=== PATIENT | female | born 1940 | race Caucasian/White ===

== ENCOUNTER 2017-03-10 20:47 | Emergency (ER) | payer OTHER ==
[~2017-03-10] VITALS: Ht 160 cm; Wt 64.0 kg
[~2017-03-10 20:47] MED LIST: AMLO-147 PO
[2017-03-10 20:54] VITALS: Ht 160 cm; Wt 64.0 kg
[2017-03-10] MEDS ORDERED: CEPH-443 PO (21:57)
[2017-03-10 22:04] VITALS: BP 147/77; PULSE 74; RESP 18; TEMP 98.2
--- NOTE | 2017-03-10 22:12 | ERD ---
ER Documentation Chief Complaint Date/Time DATE: 03/10/17 TIME: 21:59 Chief Complaint R ankle cellulitus pt has not started abx treatment HPI Patient is a 76 [id number] female with a past medical history of hypertension, cerebral aneurysm who presents to the emergency department for concerns of right ankle wound.Patient is brought in by her daughter. Daughter states that she noticed the wound approximately 4 days ago. Patient states that the affected area is tender to touch. Patient denies any falls or trauma. Patient did recently go to urgent care and was prescribed Bactrim. Patient denies starting this medication yet. Patient denies any fevers, chills, nausea , vomiting, chest pain, shortness of breath, headache, blurry vision or LOC.Patient is able to ambulate however she reports it being painful.Patient denies history of diabetes. ROS All systems reviewed and are negative except as per history of present illness. Medications Home Meds Active Scripts Cephalexin* (Keflex*) 500 Mg Capsule, 500 MG PO QID for 10 Days, CAP Prov:MILAGROS FROST PA-C 03/10/17 Reported Medications Amlodipine Besylate* (Amlodipine Besylate*) 10 Mg Tablet, 10 MG PO DAILY, TAB 12/20/13 Allergies Allergies: Coded Allergies: No Known Allergy (Unverified , 12/20/13) PMhx/Soc History of Surgery: Yes (CRANIAL SURGERY R/T ANEURYSM 2013, COLONECTOMY) Anesthesia Reaction: No Hx Neurological Disorder: No Hx Respiratory Disorders: No Hx Cardiac Disorders: Yes (HTN) Hx Psychiatric Problems: No Hx Miscellaneous Medical Probl: No Hx Alcohol Use: No Hx Substance Use: No Hx Tobacco Use: No Smoking Status: Never smoker Physical Exam Vitals Vital Signs Date Time Temp Pulse Resp B/P Pulse Ox O2 Delivery O2 Flow Rate FiO2 03/10/17 20:54 99.2 76 18 184/86 99 Physical Exam GENERAL: Well-developed, well-nourished female. Appears in no acute distress. HEAD: Normocephalic, atraumatic. EYES: Pupils are equally reactive bilaterally. EOMs grossly intact. No conjunctival erythema. ENT: Moist mucous membranes. No uvula deviation. No kissing tonsils. NECK: Supple. No meningismus. Normal range of motion of the neck. LUNG: Clear to auscultation bilaterally. No rhonchi, wheezing, rales or coarse breath sounds. HEART: Regular rate and rhythm. No murmurs, rubs or gallops. BACK: No midline tenderness. EXTREMITIES: Equal pulses bilaterally. No peripheral clubbing, cyanosis or edema. No unilateral leg swelling. NEUROLOGIC: Alert and oriented. Moving all four extremities without any difficulty. Normal speech. Steady gait. SKIN: 2 cm superficial ulcer noted on the medial aspect of the patient's right ankle with surrounding erythema and venous stasis. No active bleeding. 2+ DP palpated. Procedures/MDM MEDICAL DECISION MAKING: This is a 76-year-old female presents to the ED with concerns of a wound to her right ankle. Vital signs were reviewed. Patient was afebrile. Patient is not diabetic. Dr. Hogue my supervising physician examined the patient and agreed that skin exam findings were consistent with venous ulcer. Patient was be given prescription for Keflex. Patient was advised to fill prescription for Bactrim today when obtaining Keflex. Low suspicion for deep space infection, abscess, necrotizing fasciitis, sepsis, gangrene, insect bite. Low suspicion for patient requiring IV antibiotics at this time given that she has not tried p.o. antibiotics. Patient was advised to return to the emergency department in 2 days for wound recheck after completing at least 48 hours of p.o. antibiotics. PRESCRIPTIONS: Keflex DISCHARGE: At this time, patient is stable for discharge and outpatient management. I have instructed the patient to follow-up with his/her primary care physician in 1-2 days. Vascular surgery referral information provided. I have instructed the patient to promptly return to the ER at any time for any new or worsening symptoms including increased pain, fever, redness, swelling, warmth, difficulty breathing or vomiting. The patient and/or family expressed understanding of and agreement with this plan. All questions were answered. Home care instructions were provided. Disclaimer: Inadvertent spelling and grammatical errors are likely due to EHR/ dictation software use and do not reflect on the overall quality of patient care. Also, please note that the electronic time recorded on this note does not necessarily reflect the actual time of the patient encounter. Patient's blood pressure was elevated (>120/80) but appears stable without evidence of hypertensive emergency, hypertensive urgency or end-organ failure. I had discussion with the patient about the risks of hypertension. I have advised the patient to follow up with his/her primary care physician for outpatient monitoring and treatment for hypertension in 2-3 days. I have instructed the patient to return to the ER for any new or worsening symptoms including chest pain, shortness of breath, headache, blurred vision, confusion, nausea, vomiting or LOC. Departure Diagnosis: Primary Impression: Venous ulcer of ankle Varicose vein presence: unspecified whether present Laterality: right Non- pressure ulcer stage: unspecified non-pressure ulcer stage Qualified Code: I83.013 - Venous stasis ulcer of right ankle, unspecified ulcer stage, unspecified whether varicose veins present Condition: Stable Patient Instructions: Venous Leg Ulcer Referrals: CASA BUCIO MD,DAVID LONGO MD, MD,UYEN JIMENEZ,CONCEPCIÓN SMITH,GARCÍA WEINBERG,JANETH Bautista MD Additional Instructions: Start PO antibiotics-BOTH KEFLEX AND BACTRIM. Return in 2-3 days for wound recheck. Call your primary care doctor TOMORROW for an appointment during the next 1-2 days.See the doctor sooner or return here if your condition worsens before your appointment time. MILAGROS FROST PA-C Mar 10, 2017 22:11
== END 2017-03-10 22:05 | disposition home or self-care (01) ==
LOC: FTE 20:47
DX: I83.013 Varicose veins of right lower extremity with ulcer of ankle (principal); L97.319 Non-pressure chronic ulcer of right ankle with unspecified severity; I10 Essential (primary) hypertension
CPT/HCPCS: 99283

== ENCOUNTER 2017-03-12 17:05 | Emergency (ER) | payer OTHER ==
[~2017-03-12] VITALS: Ht 162.6 cm; Wt 61.0 kg
[~2017-03-12 17:05] MED LIST changes: +CEPH-443 PO
[2017-03-12 17:10] VITALS: Ht 162.6 cm; Wt 61.0 kg
[2017-03-12] MEDS ORDERED: HYDROCODONE/APAP (5/325) TAB PO ONE (18:00)
--- NOTE | 2017-03-12 18:38 | RADRPT ---
PROCEDURE: XR Tibia and Fibula. CLINICAL INDICATION: Trauma to the mid right leg. Reference marker directed towards the anterior me dial aspects of the mid right leg. TECHNIQUE: AP, lateral and oblique views of the right tibia and fibula were obtained. COMPARISON: No prior studies are available for comparison. FINDINGS: There is normal mineralization and alignment. No fracture or osseous lesion is identified. The joint s are unremarkable. There are normal soft tissues without evidence of soft tissue swelling. Likely s cattered soft tissue calcifications. IMPRESSION: Normal right tibia and fibula. RPTAT: [facility] Physician Samantha Date Time Electronically viewed and signed by Physician Samantha on 03/12/2017 18:37 RS/
[2017-03-12] MEDS ORDERED: HYDR-902 PO (18:50)
--- NOTE | 2017-03-12 18:58 | ERD ---
ER Documentation Chief Complaint Date/Time DATE: 03/12/17 TIME: 18:55 Chief Complaint right leg pain dx:venous ulcer on abx, unable to walk HPI This is a 76-year-old female who was seen here 2 days ago. Patient was diagnosed with an infected right medial malleolus venous stasis ulcer. She is given Keflex and Bactrim. She says she is doing much better her swelling is nearly resolved has completely resolved and her erythema is markedly improved. She states she still has some pain in the area just above the ulcer there is no calf swelling or shortness of breath chest pain. Pain is a dull pain that is nonradiating and worse when ambulating better with rest ROS All systems reviewed and are negative except as per history of present illness. Medications Home Meds Active Scripts Hydrocodone/Acetaminophen (Platina 10-325 Tablet) 1 Each Tablet, 1 TAB PO Q6H Y for PAIN, #20 TAB Prov:TIAGO ORNELAS DO 03/12/17 Cephalexin* (Keflex*) 500 Mg Capsule, 500 MG PO QID for 10 Days, CAP Prov:MILAGROS FROST PA-C 03/10/17 Reported Medications Amlodipine Besylate* (Amlodipine Besylate*) 10 Mg Tablet, 10 MG PO DAILY, TAB 12/20/13 Allergies Allergies: Coded Allergies: No Known Allergy (Unverified , 12/20/13) PMhx/Soc History of Surgery: Yes (CRANIAL SURGERY R/T ANEURYSM 2013, COLONECTOMY) Anesthesia Reaction: No Hx Neurological Disorder: No Hx Respiratory Disorders: No Hx Cardiac Disorders: Yes (HTN) Hx Psychiatric Problems: No Hx Miscellaneous Medical Probl: Yes (venous stasis ulcer) Hx Alcohol Use: No Hx Substance Use: No Hx Tobacco Use: No Smoking Status: Never smoker FmHx Family History: No coronary disease Physical Exam Vitals Vital Signs Date Time Temp Pulse Resp B/P Pulse Ox O2 Delivery O2 Flow Rate FiO2 03/12/17 17:10 99.5 88 18 147/78 96 Physical Exam Const: Well-developed, well-nourished Head: Atraumatic, normocephalic Eyes: Normal Conjunctiva, PERRLA, EOMI, normal sclera, no nystagmus ENT: Normal External Ears, Nose and Mouth, moist mucus membranes. Neck: Full range of motion. No meningismus, no lymphadenopathy. Resp: Clear to auscultation bilaterally, no wheezing, rhonchi, rales Cardio: Regular rate and rhythm, no murmurs, S1 S2 present Abd: Soft, non tender x 4, non distended. Normal bowel sounds, no guarding or rebound, no pulsitile abdominal masses or bruits Skin: No petechiae or rashes, no ecchymosis , no maculopapular rash Back: No midline or flank tenderness Ext: The right leg at the aspect of the medial malleolus has a healing venous stasis ulcer with cellulitis is very minimal her some tenderness just above this area on the tibia. There is no ecchymosis swelling Neur: Awake and alert, STR 5/5 x 4, sensation intact x 4, no focal findings, cerebellum intact Psych: Normal Mood and Affect Results 24 hrs Current Medications Medications (Trade) Dose Ordered Sig/Lily Route PRN Reason Start Time Stop Time Status Last Admin Dose Admin Acetaminophen/ Hydrocodone Bitart (Platina (5/325)) 1 tab ONCE ONCE PO 03/12/17 18:00 03/12/17 18:01 DC 03/12/17 17:57 Procedures/MDM PROCEDURE: XR Tibia and Fibula. CLINICAL INDICATION: Trauma to the mid right leg. Reference marker directed towards the anterior medial aspects of the mid right leg. TECHNIQUE: AP, lateral and oblique views of the right tibia and fibula were obtained. COMPARISON: No prior studies are available for comparison. FINDINGS: There is normal mineralization and alignment. No fracture or osseous lesion is identified. The joints are unremarkable. There are normal soft tissues without evidence of soft tissue swelling. Likely scattered soft tissue calcifications. IMPRESSION: Normal right tibia and fibula. RPTAT: [facility] Physician Samantha Date Time Electronically viewed and signed by Physician Samantha on 03/12/2017 18:37 RS/ CC: TIAGO ORNELAS DO No evidence of fracture or tumor in the bone. We will discharge her Platina Departure Diagnosis: Primary Impression: Cellulitis Site of cellulitis: extremity Site of cellulitis of extremity: lower extremity Laterality: right Qualified Code: L03.115 - Cellulitis of right lower extremity Additional Impression: Lower extremity pain Laterality: right Qualified Code: M79.604 - Pain of right lower extremity Condition: Stable Patient Instructions: Cellulitis TIAGO ORNELAS DO Mar 12, 2017 18:58
[2017-03-12 19:28] VITALS: BP 143/68; PULSE 74; RESP 17; TEMP 99
== END 2017-03-12 19:31 | disposition home or self-care (01) ==
LOC: E/R 17:05
DX: L03.115 Cellulitis of right lower limb (principal); I10 Essential (primary) hypertension
CPT/HCPCS: 73590

== ENCOUNTER 2017-03-16 18:37 | Emergency (ER) | payer OTHER ==
[~2017-03-16] VITALS: Ht 165.1 cm; Wt 72.0 kg
[~2017-03-16 18:37] MED LIST changes: +HYDR-902 PO
[2017-03-16 18:40] VITALS: Ht 165.1 cm; Wt 72.0 kg
--- NOTE | 2017-03-16 23:18 | RADRPT ---
PROCEDURE: US Lower extremity Venous. CLINICAL INDICATION: Right lower extremity edema TECHNIQUE: Multiple sonographic images of the right lower extremity deep venous system was obtaine d utilizing grayscale, color-flow, compressive sonography and doppler imaging with augmentation. COMPARISON: None. FINDINGS: There is normal compressibility / flow within the right common femoral, femoral and popliteal veins. The visualized deep veins of the calf are unremarkable. RPTAT:HJJR IMPRESSION: No sonographic evidence for deep venous thrombosis of the right lower extremity. Physician Rylie Date Time Electronically viewed and signed by Physician Rylie on 03/16/2017 23:18 /
--- NOTE | 2017-03-16 23:19 | RADRPT ---
PROCEDURE: XR right ankle. CLINICAL INDICATION: Swelling and right ankle pain TECHNIQUE: AP , oblique and lateral views of the right ankle were performed. COMPARISON: None. FINDINGS: Diffuse decreased mineralization cannot exclude osteopenia or osteoporosis. No focal demineralizatio n or periosteal reaction is demonstrated. There is a small plantar calcaneal spur. No fracture or os seous lesion is identified. The ankle mortis and talar dome are intact. Mild diffuse soft tissue swe lling is present. There is no evidence for a radiopaque foreign body. RPTAT:HJJR IMPRESSION: Mild soft tissue swelling and demineralization without acute osseous abnormality involving the righ t ankle. Physician Rylie Date Time Electronically viewed and signed by Physician Rylie on 03/16/2017 23:19 /
[2017-03-16 23:27] VITALS: TEMP 98.1
[2017-03-16] MEDS ORDERED: HYDROCODONE/APAP (5/325) TAB PO ONE (23:30)
[2017-03-17 00:05] LABS: BASOPHIL # 0.1 10^3/ul (0.0-0.1); BASOPHILS % 0.7 % (0.0-2.0); EOSINOPHILS # 0.3 10^3/ul (0.0-0.5); EOSINOPHILS % 3.1 % (0.0-7.0); HEMATOCRIT 39.5 % (37.0-47.0); HEMOGLOBIN 12.1 g/dl (12.0-16.0); LYMPHOCYTES # 2.3 10^3/ul (0.8-2.9); LYMPHOCYTES % 26.9 % (15.0-51.0); MEAN CORPUSCULAR HEMOGLOBIN 25.2 pg (29.0-33.0); MEAN CORPUSCULAR HGB CONC 30.6 g/dl (32.0-37.0); MEAN CORPUSCULAR VOLUME 82.3 fl (82.0-101.0); MONOCYTE # 0.6 10^3/ul (0.3-0.9); MONOCYTES % 7.1 % (0.0-11.0); NEUTROPHIL # 5.3 10^3/ul (1.6-7.5); PLATELET COUNT 336 10^3/UL (140-415); RED CELL DISTRIBUTION WIDTH 16.8 % (11.5-14.5); WHITE BLOOD COUNT 8.6 10^3/ul (4.8-10.8)
--- NOTE | 2017-03-17 00:09 | ERA ---
ER Documentation Chief Complaint Date/Time DATE: 03/17/17 TIME: 00:07 Chief Complaint c/o right foot non healing venous ulcer x 2 wks. Pain worse. HPI This is a 76-year-old female with a history of hypertension who is presenting with persistent pain and swelling around a right lower extremity venous stasis ulcer. This is now the third visit in approximately a week for similar symptoms. At the patient's first visit on March 10, it appears that nothing was ordered as the wounds did not look infected. She was provided a prescription for antibiotics at that time. She was instructed to follow-up with her primary care doctor or return to the emergency department for reevaluation 2 days after that visit. She did so and was reevaluated. She had an x-ray performed at that time that that did not reveal any acute traumatic injury. She is diagnosed with cellulitis at that time and told to continue her regimen of antibiotics. She returns today with persistent discomfort and swelling along the site. The family is concerned about a blood clot to the leg , though the patient does not have a history of clotting. She does have a history of lower extremity edema. She denies history of heart attack or stroke in her or her family. Patient otherwise feels well. She has not been sick recently. She has no fever or chills. She has no nausea or vomiting. She has no headache or trouble with seeing. She has no chest pain or trouble breathing. She has no abdominal pain. She has no changes to bowel movements urination. She has no focal deficits. ROS All systems reviewed and are negative except as per history of present illness. Medications Home Meds Active Scripts Hydrocodone/Acetaminophen (Omega 10-325 Tablet) 1 Each Tablet, 1 TAB PO Q6H Y for PAIN, #20 TAB Prov:TIAGO ORNELAS DO 03/12/17 Cephalexin* (Keflex*) 500 Mg Capsule, 500 MG PO QID for 10 Days, CAP Prov:MILAGROS FROST PA-C 03/10/17 Reported Medications Amlodipine Besylate* (Amlodipine Besylate*) 10 Mg Tablet, 10 MG PO DAILY, TAB 12/20/13 Allergies Allergies: Coded Allergies: No Known Allergy (Unverified , 03/16/17) PMhx/Soc History of Surgery: Yes (CRANIAL SURGERY R/T ANEURYSM 2013, COLONECTOMY) Anesthesia Reaction: No Hx Neurological Disorder: No Hx Respiratory Disorders: No Hx Cardiac Disorders: Yes (HTN) Hx Psychiatric Problems: No Hx Miscellaneous Medical Probl: Yes (venous stasis ulcer) Hx Alcohol Use: No Hx Substance Use: No Hx Tobacco Use: No Smoking Status: Never smoker FmHx Family History: No diabetes Physical Exam Vitals Vital Signs Date Time Temp Pulse Resp B/P Pulse Ox O2 Delivery O2 Flow Rate FiO2 03/16/17 23:27 98.1 79 20 178/91 Room Air 03/16/17 21:18 98.2 62 20 198/93 99 Room Air 03/16/17 18:40 98.6 61 18 136/71 99 Physical Exam Const: No apparent distress, normocephalic, atraumatic Head: Atraumatic Eyes: Normal Conjunctiva ENT: Normal External Ears, Nose and Mouth. Neck: Full range of motion..~ No meningismus. Resp: Clear to auscultation bilaterally Cardio: Regular rate and rhythm, no murmurs Abd: Soft, non tender, non distended. Normal bowel sounds Skin: No petechiae or rashes Back: No midline or flank tenderness Ext: No cyanosis, mild 1+ pitting right-sided pedal edema, minimal erythema around a stage I scabbing ulcer of the medial aspect of the distal right paula, no purulence Neur: Awake and alert, normal sensation, normal strength Psych: Normal Mood and Affect Result Diagram: 03/16/17231103/16/172311 Results 24 hrs Laboratory Tests Test 03/16/17 23:12 White Blood Count 8.610^3/ul Red Blood Count 4.8010^6/ul Hemoglobin 12.1g/dl Hematocrit 39.5% Mean Corpuscular Volume 82.3fl Mean Corpuscular Hemoglobin 25.2pg Mean Corpuscular Hemoglobin Concent 30.6g/dl Red Cell Distribution Width 16.8% Platelet Count 99524^3/UL Mean Platelet Volume 11.0fl Neutrophils % 62.0% Lymphocytes % 26.9% Monocytes % 7.1% Eosinophils % 3.1% Basophils % 0.7% Nucleated Red Blood Cells % 0.0/100WBC Neutrophils # 5.310^3/ul Lymphocytes # 2.310^3/ul Monocytes # 0.610^3/ul Eosinophils # 0.310^3/ul Basophils # 0.110^3/ul Nucleated Red Blood Cells # 0.010^3/ul Erythrocyte Sedimentation Rate 43mm/Hr Sodium Level 139mmol/L Potassium Level 4.5mmol/L Chloride Level 104mmol/L Carbon Dioxide Level 27mmol/L Anion Gap 13 Blood Urea Nitrogen 19mg/dl Creatinine 0.81mg/dl Glucose Level 104mg/dl Calcium Level 9.3mg/dl C-Reactive Protein Pending Current Medications Medications (Trade) Dose Ordered Sig/Lily Route PRN Reason Start Time Stop Time Status Last Admin Dose Admin Acetaminophen/ Hydrocodone Bitart (Omega (5/325)) 1 tab ONCE ONCE PO 03/16/17 23:30 03/16/17 23:35 DC 03/16/17 23:39 Procedures/MDM MDM Patient's presentation warrants further investigation. This is now the third emergency medicine visit this month for similar complaint. She has had previous imaging performed, but no blood work or ultrasound has been done in the past. I intend to complete blood work. We will obtained a right ankle x- ray. We also obtain a right lower extremity ultrasound to evaluate for DVT. LABS The patient's blood work was obtained and reviewed. The patient seemed shows no leukocytosis or left shift. The patient is afebrile, and I do not suspect a systemic infection. The patient is not anemic today. The patient's platelet count is unremarkable. The patient's CMP shows no signs of metabolic or electrolyte abnormality. The patient has normal renal and hepatic function testing. The patient's ESR and CRP are still pending. IMAGING LLE Doppler IMPRESSION: No sonographic evidence for deep venous thrombosis of the right lower extremity. Electronically viewed and signed by Physician Rylie on 03/16/2017 23:18 Ankle XR IMPRESSION: No sonographic evidence for deep venous thrombosis of the right lower extremity. Electronically viewed and signed by Physician Rylie on 03/16/2017 23:18 TREATMENT/DISPOSITION The patient was given oral narcotic pain medication in the emergency department as per her regimen from home. I do see evidence of very mild cellulitis, and it appears to be almost completely resolved. The patient still has the ulcer that will need to be attended to. A thin layer of bacitracin over Neosporin may be applied to the wound at home. The patient needs to complete her course of antibiotics at home. She may continue taking her pain medication as prescribed previously. She needs follow-up with her primary care physician regarding the wound. The patient does not have visual evidence of osteomyelitis. The ESR and CRP will not come back quickly. Decision making was enacted, and it was decided to have the primary care doctor follow-up with these blood tests. I felt that this was appropriate given my low suspicion for osteomyelitis at this time. I feel that the course previously decided upon during her last emergency medicine visit is appropriate. The patient is stable for discharge. She will be given precautions with which to return to the emergency department. Patient's blood pressure was elevated in the emergency department. She was instructed to follow-up with her primary care physician for reevaluation of her pressure. She does not endorse any symptoms of hypertensive urgency or emergency. Departure Diagnosis: Primary Impression: Skin ulcer Qualified Code: L98.491 - Skin ulcer, limited to breakdown of skin Additional Impressions: Venous stasis ulcer Qualified Code: I87.2 - Venous stasis ulcer of left calf limited to breakdown of skin without varicose veins Pedal edema Encounter for wound re-check Condition: CORDELL Figueroa MD Mar 17, 2017 00:09
[2017-03-17 00:35] LABS: CALCIUM 9.3 mg/dl (8.4-10.2); CREATININE 0.81 mg/dl (0.44-1.00); POTASSIUM 4.5 mmol/L (3.5-5.1)
[2017-03-17 01:40] VITALS: BP 185/80; PULSE 56; RESP 18
[2017-03-17 01:50] LABS: C-REACTIVE PROTEIN 0.8 mg/dl (0.0-0.9)
== END 2017-03-17 01:40 | disposition home or self-care (01) ==
LOC: E/R 18:37
DX: L98.491 Non-pressure chronic ulcer of skin of other sites limited to breakdown of skin (principal); I87.2 Venous insufficiency (chronic) (peripheral); I10 Essential (primary) hypertension; Z48.01 Encounter for change or removal of surgical wound dressing
CPT/HCPCS: 80048; 85025; 85651; 86140; 93971

== ENCOUNTER 2018-07-23 16:16 | Emergency (ER) | payer OTHER ==
[~2018-07-23] VITALS: Ht 167.6 cm; Wt 85.0 kg
[~2018-07-23 16:16] MED LIST changes: +HYDR-3980 PO; -HYDR-902 PO
[2018-07-23 16:20] VITALS: Ht 167.6 cm; Wt 85.0 kg
[2018-07-23] MEDS ORDERED: ACETAMINOPHEN 325 MG TAB PO ONE (18:00)
[2018-07-23] MEDS ORDERED: TRAM50TA2 PO (19:07)
[2018-07-23] MEDS ORDERED: IBUP-1561 PO (19:07)
--- NOTE | 2018-07-23 19:11 | ERD ---
ER Documentation Chief Complaint Chief Complaint Complains of arm pain afetr a slip and fall HPI 78-year-old female presents with right wrist pain and right elbow pain after slipping while playing with her grandchildren today. She has restricted range of motion due to pain but no weakness. There is no history of head injury, neck injury, additional injury. ROS All systems reviewed and are negative except as per history of present illness. Medications Home Meds Active Scripts Tramadol HCl (Tramadol HCl) 50 Mg Tablet, 50 MG PO Q4 PRN for PAIN, #15 TAB Prov:BROOKE CASTLE MD 07/23/18 Ibuprofen* (Motrin*) 400 Mg Tab, 400 MG PO Q6, #20 TAB Prov:BROOKE CASTLE MD 07/23/18 Hydrocodone/Acetaminophen ([place] 10-325 Tablet) 1 Each Tablet, 1 TAB PO Q6H PRN for PAIN, #20 TAB Prov:TIAGO ORNELAS DO 03/12/17 Cephalexin* (Keflex*) 500 Mg Capsule, 500 MG PO QID for 10 Days, CAP Prov:MILAGROS FROST PA-C 03/10/17 Reported Medications Amlodipine Besylate* (Amlodipine Besylate*) 10 Mg Tablet, 10 MG PO DAILY, TAB 12/20/13 Allergies Allergies: Coded Allergies: No Known Allergy (Unverified , 03/16/17) PMhx/Soc History of Surgery: Yes (CRANIAL SURGERY R/T ANEURYSM 2013, COLONECTOMY) Anesthesia Reaction: No Hx Neurological Disorder: No Hx Respiratory Disorders: No Hx Cardiac Disorders: Yes (HTN) Hx Psychiatric Problems: No Hx Miscellaneous Medical Probl: Yes (venous stasis ulcer) Hx Alcohol Use: No Hx Substance Use: No Hx Tobacco Use: No Smoking Status: Never smoker FmHx Family History: No diabetes, No coronary disease, No other Physical Exam Vitals Vital Signs Date Temp Pulse Resp B/P (MAP) Pulse Ox O2 O2 Flow FiO2 Time Delivery Rate 07/23/18 98.4 81 18 134/70 98 Room Air 19:42 (91) 07/23/18 98.8 86 20 139/70 96 16:20 (93) Physical Exam Const: No acute distress Head: Atraumatic Eyes: Normal Conjunctiva ENT: Normal External Ears, Nose and Mouth. Neck: Full range of motion. No meningismus. Resp: Clear to auscultation bilaterally Cardio: Regular rate and rhythm, no murmurs Abd: Soft, non tender, non distended. Normal bowel sounds Skin: No petechiae or rashes Back: No midline or flank tenderness Ext: No cyanosis, or edema. Tenderness with deformity of the right wrist. No erythema or warmth or bleeding. Tenderness and diffuse mild swelling right elbow. No deformities. Right upper extremity is neurovascular intact. Neur: Awake and alert Psych: Normal Mood and Affect Results 24 hrs Current Medications Medications Dose Sig/Lily Start Time Status Last (Trade) Ordered Route PRN Stop Time Admin Dose Reason Admin 650 mg ONCE ONCE 07/23/18 DC 07/23/18 Acetaminophen PO 18:00 17:40 (Tylenol 07/23/18 18:01 Tab) Procedures/MDM X-ray right wrist 3V Interpreted by me: Scaphoid: Normal Bones: Angulated, impacted, comminuted interarticular fracture of the right distal radius and ulnar styloid. Joints: No dislocation Foreign body: None. Impression-angulated, impacted and comminuted intra- articular fracture of the right wrist. X-ray right Elbow 3V Interpreted by me: Fat Pads: Elevated anterior and posterior fat pads Bones: No fracture Joints: No dislocation Foreign body: None. Impression-right elbow effusion concerning for occult fracture. No acute fracture identified. Patient was placed in a right upper extremity sugar tong splint. Patient is neurovascular intact after splint. Patient was given right arm sling, Tylenol for pain. Patient be discharged home with instructions for orthopedic follow-up in the next week. She is advised she may need authorization from primary doctor. Will treat with tramadol and ibuprofen for pain. She should return sooner for fevers, redness, new worsening symptoms. There is no current evidence of infection, ischemia or deficits. Departure Diagnosis: Primary Impression: Wrist fracture, right Encounter type: initial encounter Fracture type: closed Qualified Codes: S62.101A - Fracture of unspecified carpal bone, right wrist, initial encounter for closed fracture Condition: Stable Patient Instructions: Contusion, Elbow, Fracture, Finger (Closed), Fracture, Wrist [General] Referrals: CHARISMA ROACH MD, [place] SOO MD Additional Instructions: Fracture seen in the right wrist. Possible fracture seen in the right elbow. See orthopedist for further evaluation this week for further evaluation and treatment. May need authorization from primary doctor for orthopedist visit. Recheck sooner for fevers, redness, new symptoms. BROOKE CASTLE MD Jul 23, 2018 19:11
[2018-07-23 19:42] VITALS: BP 134/70; PULSE 81; RESP 18
== END 2018-07-23 20:14 | disposition home or self-care (01) ==
LOC: FTE 16:16
DX: S62.101A Fracture of unspecified carpal bone, right wrist, initial encounter for closed fracture (principal); I10 Essential (primary) hypertension; W01.0XXA Fall on same level from slipping, tripping and stumbling without subsequent striking against object, initial encounter; Y92.9 Unspecified place or not applicable